=== PATIENT | male | born 1990 | race Caucasian/White ===

== ENCOUNTER 2024-06-04 03:11 | Emergency (ER) | payer MEDICAID ==
[~2024-06-04] VITALS: Ht 182.9 cm; Wt 80.0 kg
[2024-06-04 03:23] VITALS: BP 122/78; PULSE 80; RESP 16; O2SAT 100
[2024-06-04] MEDS ORDERED: CEPH500C2 PO (07:13)
[2024-06-04] MEDS ORDERED: T3 PO (07:13)
[2024-06-04] MEDS ORDERED: SULF1TAB48 PO (07:13)
[2024-06-04 07:51] VITALS: TEMP 99
[2024-06-04] MEDS: ACETAMINOPHEN 325MG TABLET PO ONE (07:51)
== END 2024-06-04 07:54 | disposition home or self-care (01) ==
LOC: ER 04:49
DX: L03.116 Cellulitis of left lower limb (principal); Z79.899 Other long term (current) drug therapy
CPT/HCPCS: 99283